=== PATIENT | male | born 1980 | race African-American/Black ===

== ENCOUNTER 2021-09-15 23:08 | Emergency (ER) | payer MEDICAID ==
[~2021-09-15] VITALS: Ht 167.6 cm; Wt 99.0 kg
[2021-09-16] MEDS ORDERED: LORAZEPAM 2MG/ML CPJ IM ONE (00:30)
[2021-09-16] MEDS ORDERED: DIPHENHYDRAMINE 50MG/ML VIAL IM ONE (00:30)
[2021-09-16] MEDS ORDERED: HALOPERIDOL LACTATE 5MG/ML VIAL IM ONE (00:30)
[2021-09-16 07:43] VITALS: BP 111/71
== END 2021-09-16 09:10 | disposition home or self-care (01) ==
LOC: ER 23:08
DX: Z59.00 Homelessness unspecified (principal)
CPT/HCPCS: 93005; 96372; 99285; J1200; J1630; J2060